=== PATIENT | female | born 1995 | race Two or more races ===

== ENCOUNTER 2023-09-18 16:15 | Outpatient (CLI) | payer OTHER | END 2023-09-18 16:16 | disposition home or self-care (01) | LOC: PRENATAL 16:15 | PROVIDERS: ATTEND Obstetrics & Gynecology Maternal & Fetal Medicine | DX: O35.9XX0 Maternal care for (suspected) fetal abnormality and damage, unspecified, not applicable or unspecified (principal); O44.00 Complete placenta previa NOS or without hemorrhage, unspecified trimester; Z3A.20 20 weeks gestation of pregnancy ==